=== PATIENT | female | born 1945 | race Caucasian/White ===

== ENCOUNTER 2017-03-16 07:27 | Inpatient (IN) ==
[2017-03-16] MEDS ORDERED: 0.9 % Sodium Chloride 1,000 ML IVC SCH (08:15)
--- NOTE | 2017-03-16 09:43 | Electrophysiology H & P ---
Date of Encounter: 03/16/17 Time of Encounter: 09:41 Assessment and Plan (1) Paroxysmal atrial fibrillation Current Visit: No Status: Acute The assessment and plan as outlined above was discussed with the patient and/or family members who expressed understanding and agreement. All questions were answered. Has failed two antiarrythmics at this point. We discussed the risks and benefits of a cryoablation. She agreed to proceed. History of Present Illness Chief complaint: PAF HPI: Ms. Banerjee is a 71 year old female with a history of PAF. She has tried multiple antiarrythmics, most recently she has been on sotalol with continued recurrances. We discussed the option of cryoablation, we discussed the risks and benefits and she agreed to proceed. Past Med Surg Social Fam HX - Past Medical History Medical history: arthritis, atrial fibrillation Psychiatric history: no psych history - Social History Smoking Status: Never smoker Smokeless Tobacco Status: No Alcohol use: none Drug use: none - Family History Mother Adopted: No Living Status: Hx Family Cardiac Disorders: No Hx Family Respiratory Disorders: No Hx Family Cancer: Yes Hx Family GI Disorders: No Hx Family Endocrine Disorder: No Hx Family Neuromuscular Disorders: No Hx Family Neurologic Disorders: No Hx Family HEENT Disorders: No Hx Family Autoimmune Disorders: No Medications and Allergies Alendronate Sodium [Fosamax] 70 mg PO QWEEK 11/02/15 [History] Calcium Carbonate [Calcium] 600 mg PO BID 11/02/15 [History] Lactobacillus Acidophilus [Acidophilus Probiotic] 1 mg PO DAILY 11/02/15 [ History] Levothyroxine [Synthroid] 25 mcg PO QAM 11/02/15 [History] Loratadine [Claritin] 10 mg PO DAILY 11/02/15 [History] Multivitamin [Multi-Day Vitamins] 1 each PO DAILY 11/02/15 [History] [place]-3/Dha/Epa/Fish Oil [Fish Oil 1,000 mg Softgel] 1 each PO BID 11/02/15 [ History] Pravastatin Sodium [Pravachol] 20 mg PO DAILY 11/02/15 [History] Primidone [Mysoline] 50 mg PO BID 11/02/15 [History] Rivaroxaban [Xarelto] 20 mg PO DAILY #0 12/30/15 [Rx] Sotalol [Betapace] 120 mg PO Q12H #60 tablet 12/30/15 [Rx] Verapamil HCl [Verapamil ER] 120 mg PO DAILY 03/16/17 [History] 3 Allergy/AdvReac Type Severity Reaction Status Date / Time No Known Allergies Allergy Verified 11/02/15 15:30 All Systems Review: A 10-system review of systems was performed and is negative for pertinent findings except as documented above in the HPI. Physical Examination Vital Signs, Last 4 Hours Temp Pulse Resp BP Pulse Ox 03/16/17 08:10 98.2 F 59 16 125/75 98 General: Conversant, No Apparent Distress HEENT: Atraumatic, Normocephaly, Mucus Membranes Moist Neck: No JVD, Normal carotid pulses Cardiac: Reg Rate and Rhythm, Normal S1 and S2, No Murmur, Other (device site normal) Lungs: Normal Breath Sounds, No Wheeze, Rales, Rhonchi Neuro: Alert and responsive, No focal deficits noted Abdomen: Soft, Non-Tender Skin: No rashes noted on visualized skin Musculoskeletal: No Chest Wall Tenderness
--- NOTE | 2017-03-16 10:50 | Anesthesia Evaluation PreOp ---
Date of Encounter: 03/16/17 Time of Encounter: 10:48 - Past History Planned Operation: cryoablation Cardiac History: HTN, Hyperlipidemia, Arrhythmia (a-fib), Pacemaker/ICD (pacer 2016) Pulmonary History: Denies Any Significant HX GAS SINGER History: Denies Any Significant HX Other Medical History: Denies Any Significant HX Anesthesia History: No Prior Anesthetic Complications, Past Anesthesia (remote T &A) Alcohol Use: none Drug use: none Medications and Allergies Alendronate Sodium [Fosamax] 70 mg PO QWEEK 11/02/15 [History] Calcium Carbonate [Calcium] 600 mg PO BID 11/02/15 [History] Lactobacillus Acidophilus [Acidophilus Probiotic] 1 mg PO DAILY 11/02/15 [ History] Levothyroxine [Synthroid] 25 mcg PO QAM 11/02/15 [History] Loratadine [Claritin] 10 mg PO DAILY 11/02/15 [History] Multivitamin [Multi-Day Vitamins] 1 each PO DAILY 11/02/15 [History] [place]-3/Dha/Epa/Fish Oil [Fish Oil 1,000 mg Softgel] 1 each PO BID 11/02/15 [ History] Pravastatin Sodium [Pravachol] 20 mg PO DAILY 11/02/15 [History] Primidone [Mysoline] 50 mg PO BID 11/02/15 [History] Rivaroxaban [Xarelto] 20 mg PO DAILY #0 12/30/15 [Rx] Sotalol [Betapace] 120 mg PO Q12H #60 tablet 12/30/15 [Rx] Verapamil HCl [Verapamil ER] 120 mg PO DAILY 03/16/17 [History] 3 Allergy/AdvReac Type Severity Reaction Status Date / Time No Known Allergies Allergy Verified 11/02/15 15:30 - Meds/Allergy Pre-op Review Medications Reviewed: Yes Allergies Reviewed: Yes Beta Blockers on Current Med List: Yes If Beta Blockers taken, Date/Time (Last Dose taken): today 0600 Anesthesia Results - Labs Laboratory Tests 03/02/17 03/02/17 03/02/17 09:08 09:08 09:08 Hgb 12.9 Hct 40.4 PT 14.4 H INR 1.3 APTT 36.0 BUN 21 H Creatinine 1.14 H - Imaging EKG: report reviewed (ELECTRONIC ATRIAL PACEMAKER INDETERMINATE AXIS) Anesthesia Exam Selected Entries 03/16/17 08:10 Temperature 98.2 F Pulse Rate 59 Respiratory Rate 16 Blood Pressure 125/75 O2 Sat by Pulse Oximetry 98 Weight: 78kg NPO (# of Hours): 8 - HEENT Pupil (Motor): EOMI Mallampati: II Teeth: Normal Oral Opening: Greater than 3 - GAS SINGER LOC: Oriented GAS SINGER Motor: Normal RUE, Normal LUE, Normal RLE, Normal LLE, Normal Face GAS SINGER Sensory: Normal: RUE, LUE, RLE, LLE, Face - Cardiac Rhythm: Regular Murmur: None - Pulmonary Breath Sounds: bilateral Clear Respiratory Effort: Symmetrical Anesthesia Assess/Plan ASA Score: 3 Modified Ralph Scale for Level of Consciousness: Cooperative, oriented, and tranquil Anesthetic Plan: General Monitoring Plan: Standard Monitors, A-Line Recovery Plan: Other (discussed risks of GA, agrees to proceed. took Xarelto last nite approx 2000hrs)
[2017-03-16] MEDS ORDERED: *HR* FentaNYL (PF) 100 MCG/2 ML VIAL ONE (11:30)
[2017-03-16] MEDS ORDERED: Lidocaine -MPF 4% 5 ML AMPUL INFILT ONE (11:31)
[2017-03-16] MEDS ORDERED: *HR* Phenylephrine 10 MG/ML VIAL IVC ONE (11:31)
[2017-03-16] MEDS ORDERED: Ondansetron 4 MG/2 ML VIAL IM ONE (11:31)
[2017-03-16] MEDS ORDERED: *HR* Propofol 200 MG/20 ML VIAL IVP ONE (11:31)
[2017-03-16] MEDS ORDERED: *HR* Succinylcholine 200 MG/10 ML VIAL IVP ONE (11:31)
[2017-03-16] MEDS ORDERED: Lidocaine -MPF 2% 5 ML VIAL INFILT ONE (11:31)
[2017-03-16] MEDS ORDERED: HEPARIN 25000 UNIT/500 ML IVC ONE (11:55)
[2017-03-16] MEDS ORDERED: DEXTROSE IVC ONE (11:55)
[2017-03-16] MEDS ORDERED: Heparin 1,000 UNITS/500 mL NS 500 ML ONE ×2 (11:56→13:34)
[2017-03-16] MEDS ORDERED: *HR* Heparin 10,000 UNIT/10 ML VIAL ONE (11:56)
[2017-03-16] MEDS ORDERED: Heparin 1,000 UNITS/500 mL NS 1,000 ML ONE (11:57)
[2017-03-16] MEDS ORDERED: 0.9 % Sodium Chloride 1,000 ML ONE (14:19)
[2017-03-16] MEDS ORDERED: Naloxone 0.4 MG/ML INJ IVP PRN (16:34)
[2017-03-16] MEDS ORDERED: *HR* Morphine 2 MG/ML SYRINGE IVP PRN (16:34)
[2017-03-16] MEDS ORDERED: Ondansetron 4 MG/2 ML VIAL IVP PRN (16:34)
[2017-03-16] MEDS ORDERED: Acetaminophen 325 MG TABLET PO PRN (16:34)
--- NOTE | 2017-03-16 16:43 | Electrocardiograph Report ---
[address] [address] Test Date: 2017-03-16 Pat Name: Dee Banerjee Department: 106 Room: Gender: F Respiratory Care Practitioner: : 1945 Requested By: Denis Garces Order Number: [id number] Reading MD: Trish Nunn Measurements Intervals [place] Rate: 59 P: 141 HI: 160 QRS: 40 QRSD: 83 T: -2 QT: 418 QTc: 418 Interpretive Statements ELECTRONIC ATRIAL PACEMAKER Electronically Signed On 03-16-2017 16:41:28 EDT by Trish Nunn
[2017-03-16] MEDS ORDERED: NON-FORMULARY MEDICATION 1 EACH EACH (Alendronate Sodium [Fosamax] 70 MG) PO SCH (16:45)
[2017-03-16] MEDS: Primidone 50 MG TABLET PO SCH (20:06)
[2017-03-16] MEDS: (Omega-3/Dha/Epa/Fish Oil [Fish Oil 1,000 Mg Softgel] PO SCH (20:09)
[2017-03-17] MEDS: Primidone 50 MG TABLET PO SCH (07:54)
[2017-03-17] MEDS: (Omega-3/Dha/Epa/Fish Oil [Fish Oil 1,000 Mg Softgel] PO SCH (07:55)
--- NOTE | 2017-03-17 08:03 | Discharge Summary ---
Date of Encounter: 03/17/17 Time of Encounter: 08:00 - Discharge Diagnosis (1) Paroxysmal atrial fibrillation Priority: Primary Status: Acute Comments: S/p Cryoballon ablation for PAF. - Discharge Medications Home Medications: Alendronate Sodium [Fosamax] 70 mg PO QWEEK 11/02/15 [History] Calcium Carbonate [Calcium] 600 mg PO BID 11/02/15 [History] Lactobacillus Acidophilus [Acidophilus Probiotic] 1 mg PO DAILY 11/02/15 [ History] Levothyroxine [Synthroid] 25 mcg PO QAM 11/02/15 [History] Loratadine [Claritin] 10 mg PO DAILY 11/02/15 [History] Multivitamin [Multi-Day Vitamins] 1 each PO DAILY 11/02/15 [History] [place]-3/Dha/Epa/Fish Oil [Fish Oil 1,000 mg Softgel] 1 each PO BID 11/02/15 [ History] Pravastatin Sodium [Pravachol] 20 mg PO HS 11/02/15 [History] Primidone [Mysoline] 50 mg PO BID 11/02/15 [History] Rivaroxaban [Xarelto] 20 mg PO DAILY #0 12/30/15 [Rx] Sotalol HCl [Betapace] 120 mg PO Q12H 03/16/17 [History] Verapamil HCl [Verapamil ER] 120 mg PO DAILY 03/16/17 [History] Allergies/Adverse Reactions: 3 Allergy/AdvReac Type Severity Reaction Status Date / Time No Known Allergies Allergy Verified 11/02/15 15:30 Procedures/tests Complete & Pending: Procedures Performed prior 72 hours Category Date Time Status CL Ablation [CL] Routine Supervisor Poultry Processing 03/16/17 07:49 Ordered ECG 12 lead ECG [ECG] Stat Y 03/16/17 07:49 Completed Date of admission: 03/16/17 17:00 Primary care physician: Shanthi Villeda CNP Consults: none Discharging clinician: Adan Dobson Anticipated date of discharge: 03/17/17 - Patient Status Disposition: Home, Self-Care Condition: Good Functional capacity at discharge: independent ambulation Overall status at discharge: patient is progressing back to baseline - Discharge Instructions Follow Up With: Denis Garces MD [Partnered Physician] - 04/14/17 9:45 am Shanthi Villeda CNP [Primary Care Provider] - 03/23/17 9:45 am Additional Instructions: ACTIVITY: It is recommended to have someone stay overnight for the first night after the procedure. Avoid strenuous activity, climbing stairs, and no lifting more than 5 pounds (gallon of milk) for 5-7 days to minimize risk of bleeding from procedure site. BATHING/SHOWERING: Sponge bathe only for the first 24 hours. You may shower after 24 hours. Allow water to rinse over site, do not scrub site, and pat dry gently with a towel. No baths, hot tubs, or soaking for 5-7 days. WOUND CARE: Do not remove the bandage over the site for 24 hours. Do not use any antibiotic ointment or Vitamin E on the site. If you have any bleeding or swelling to the groin, please lay flat and hold pressure for 15 minutes. Return to work as instructed per physician Resume driving as instructed per physician Keep all scheduled follow up appointments Resume medications as instructed Contact [facility] ( ) if: You develop excessive bleeding from insertion or wound site not controlled by applying pressure You develop a fever greater than 101 degrees Fahrenheit Your incision becomes reddened at or around the site Your incision develops yellowish or greenish drainage or development of white pimple-like bumps You experience excessive pain You experience muscle switching If you experience chest pain, shortness of breath, dizziness, or extreme tiredness, stop the activity and rest. Please notify [facility] office if you experience any of these symptoms and they are not relieved by rest please call 911! - Diet and Activity Diet: advance to your usual diet - Hospital Course Hospital course: Ms. Banerjee is a 71 year old female seen by Dr. Denis Garces in outpatient setting with paroxysmal atrial fibrillation despite antiarrhythmic therapy. Patient underwent cryo balloon ablation yesterday by Dr. Denis Garces. Average heart rate on telemetry 62, no afib noted, currently atrial pacing in the 60s. Prepping for discharge home today in stable condition. Remains on anticoagulation and antiarrhythmic. - Time Spent with Patient Total time spent providing and/or coordinating discharge services: Less than 30 minutes Physical Examination Selected Entries 03/17/17 07:44 Temperature 98.5 F Pulse Rate 62 Respiratory Rate 16 Blood Pressure 109/65 O2 Sat by Pulse Oximetry 97 Oxygen Delivery Method Room Air General: Conversant, No Apparent Distress HEENT: Atraumatic, Normocephaly, Mucus Membranes Moist Neck: No JVD, Normal carotid pulses Cardiac: Reg Rate and Rhythm, Normal S1 and S2, No Murmur Lungs: Normal Breath Sounds, No Wheeze, Rales, Rhonchi Neuro: Alert and responsive, No focal deficits noted Abdomen: Soft, Non-Tender Skin: No rashes noted on visualized skin, Other (Bilateral groin sites dry and intact, no bleeding, no ecchymosis, bilateral dorsalis pedis and posterior tibial pulses 2+ palpable) Musculoskeletal: No Chest Wall Tenderness Extremities: No Clubbing, No Cyanosis, No Edema, Normal Pulses - VTE Reasons for not Prescribing Prophylaxis: Not indicated-Anticoagulated or INR therapeutic
[2017-03-17 08:06] VITALS: BP 109/65
[2017-03-17] MEDS ORDERED: Loratadine 10 MG TABLET PO SCH (09:00)
[2017-03-17] MEDS ORDERED: Levothyroxine 25 MCG TABLET PO SCH (09:00)
[2017-03-17] MEDS ORDERED: Lactobacillus 1 EACH CAP.SPRINK PO SCH (09:00)
[2017-03-17] MEDS ORDERED: Multivit/Ca/Min/Fe/FA 1 TAB TABLET PO SCH (09:00)
[2017-03-17] MEDS ORDERED: Verapamil ER (24 HR) 120 MG TABLET.ER PO SCH (09:00)
[2017-03-17] MEDS ORDERED: *HR* Rivaroxaban 10 MG TABLET PO SCH (09:00)
== END 2017-03-17 11:32 | disposition home or self-care (01) | DRG 274 ==
LOC: INVDIALAB 07:27 → 2NNU 17:00
PROVIDERS: ADMIT Internal Medicine Clinical Cardiac Electrophysiology; ATTEND Internal Medicine Clinical Cardiac Electrophysiology